=== PATIENT | male | born 1985 | race Caucasian/White ===

== ENCOUNTER 2021-05-21 21:02 | Emergency (ER) | payer MEDICAID ==
[~2021-05-21] VITALS: Ht 188 cm; Wt 95.3 kg
[2021-05-21 21:18] VITALS: BP_SYST 144
--- NOTE | 2021-05-21 22:00 | NUR ---
Patient to [facility] for evaluation.
--- NOTE | 2021-05-21 22:01 | NUR ---
PATIENT BROUGHT IN BY OSOR[facility] RODRIGUEZ FOR MEDICAL CLEARANCE COMPLAINING OF BODY ACHES, NAUSEA, VOMITING AND DIARRHEA. PATIENT REPORTS IS HE WITHDRAWING ON HEROIN. PAIN 12/30
--- NOTE | 2021-05-21 22:03 | NUR ---
ER Dr. COTTRELL at bedside examining patient.
--- NOTE | 2021-05-21 22:05 | NUR ---
# 20 gauge angiocath placed to LT AC. Use of asceptic technique. Opsite placed over site. Blood return noted. Flushed with 10 cc of normal saline. No evidence of infiltration noted. Patient tolerated well.
[2021-05-21] MEDS ORDERED: ONDA-8 TL (22:07)
[2021-05-21] MEDS ORDERED: KETOROLAC TROMETHAMINE 30 MG VIAL IVP ONE (22:15)
[2021-05-21] MEDS ORDERED: NACL 0.9% 1,000 ML IV ONE (22:15)
[2021-05-21] MEDS ORDERED: ONDANSETRON HCL 4 MG/2 ML VIAL IVP ONE (22:15)
[2021-05-21 22:45] VITALS: BP_SYST 132
--- NOTE | 2021-05-21 22:45 | NUR ---
Patient given written and verbal discharge instructions and verbalizes understanding. ER MD discussed with patient the results and treatment provided. Patient in stable condition. ID arm band removed. IV catheter removed intact and dressing applied, no active bleeding. Rx of ZOFRAN given. Patient educated on pain management and to follow up with PMD. Pain Scale 0/10 Opportunity for questions provided and answered. Medication side effect fact sheet provided.
== END 2021-05-21 22:45 | disposition home or self-care (01) ==
LOC: SED 21:02
DX: F11.23 Opioid dependence with withdrawal (principal); R11.10 Vomiting, unspecified; R19.7 Diarrhea, unspecified; Z79.899 Other long term (current) drug therapy
CPT/HCPCS: 96374; 96375; 99284; J1885; J2405